=== PATIENT | female | born 1965 | race African-American/Black ===

== ENCOUNTER 2017-08-22 21:55 | Emergency (ER) | payer MEDICAID, OTHER ==
[~2017-08-22] VITALS: Ht 165.1 cm; Wt 104.3 kg
[2017-08-22 22:52] LABS: Urine Bacteria FEW /hpf (None Seen); Urine Blood Negative /uL (Negative); Urine Hyaline Cast FEW /lpf (0 - 2); Urine Mucus FEW (None Seen); Urine Specific Gravity 1.006 (1.001-1.035); Urine WBC 16 /hpf (0 - 5)
[2017-08-22 23:01] LABS: Basophils # (auto) 0 uL; Basophils % (auto) 0.5 % (0.0-2.0); Hematocrit 42.7 % (36.0-46.0); Mean Corpuscular Hemoglobin 25.4 pg (28.0-32.0); Monocytes # (auto) 0.5 uL; Nucleated Red Blood Cells % 0.1 %
[2017-08-22 23:03] LABS: Eosinophils # (auto) 0 uL; Eosinophils % (auto) 0.7 % (0.0-7.0); Hemoglobin 13.7 g/dL (12.2-16.2); Lymphocytes # (auto) 1.7 uL; Lymphocytes % (auto) 24.4 % (10.0-50.0); Mean Corpuscular Hgb Conc. 32.1 g/dL (32.0-36.0); Monocytes % (auto) 6.6 % (0.0-12.0); Neutrophils # (auto) 4.7 uL; Neutrophils % (auto) 67.8 % (37.0-80.0); Platelet Count (auto) 208 10^3/uL (140-450); Red Cell Distribution Width 15.5 % (11.8-14.3); White Blood Cell 6.9 10^3/uL (4.4-10.8)
[2017-08-22 23:12] LABS: Albumin 3.6 g/dL (3.4-5.0); BUN/Creatinine Ratio 8.2; Magnesium 2.2 mg/dL (1.6-2.6); Potassium 3.6 mmol/L (3.5-5.1)
[2017-08-22 23:15] LABS: Bilirubin, Total 0.8 mg/dL (0.2-1.0); Total Protein 8.4 g/dL (6.4-8.2)
[2017-08-23] MEDS ORDERED: ASPirin 81 mg TAB PO ONE (01:45)
[2017-08-23] MEDS ORDERED: HYDROcodone-ACET 5/325MG TAB PO ONE (01:45)
[2017-08-23] MEDS ORDERED: ASPirin 81 mg TAB ONE (02:08)
[2017-08-23 02:59] VITALS: BP 116/89
== END 2017-08-23 03:01 | disposition home or self-care (01) ==
LOC: ER 21:57
DX: R07.89 Other chest pain (principal); N39.0 Urinary tract infection, site not specified; J45.909 Unspecified asthma, uncomplicated; E11.9 Type 2 diabetes mellitus without complications; Z88.1 Allergy status to other antibiotic agents
CPT/HCPCS: 36415; 71045; 80053; 81001; 83735; 83880; 84484; 85025; 93005

== ENCOUNTER 2017-08-23 08:12 | Observation (INO) | payer MEDICAID ==
[~2017-08-23] VITALS: Ht 165.1 cm; Wt 104.3 kg
[2017-08-23 09:27] LABS: Basophils # (auto) 0.1 uL; Eosinophils # (auto) 0.1 uL; Hematocrit 40.5 % (36.0-46.0); Lymphocytes # (auto) 1.2 uL; Monocytes # (auto) 0.5 uL; Nucleated Red Blood Cells % 0.1 %; White Blood Cell 6.6 10^3/uL (4.4-10.8)
[2017-08-23 09:29] LABS: Basophils % (auto) 0.8 % (0.0-2.0); Eosinophils % (auto) 1.3 % (0.0-7.0); Hemoglobin 13.2 g/dL (12.2-16.2); Lymphocytes % (auto) 18.1 % (10.0-50.0); Mean Corpuscular Hemoglobin 25.6 pg (28.0-32.0); Mean Corpuscular Hgb Conc. 32.5 g/dL (32.0-36.0); Mean Corpuscular Volume 78.8 fL (80.0-100.0); Monocytes % (auto) 7.3 % (0.0-12.0); Neutrophils # (auto) 4.8 uL; Neutrophils % (auto) 72.5 % (37.0-80.0); Platelet Count (auto) 201 10^3/uL (140-450); Red Blood Cells 5.14 10^6/uL (4.0-5.20); Red Cell Distribution Width 15.2 % (11.8-14.3)
[2017-08-23 09:38] LABS: Albumin 3.6 g/dL (3.4-5.0); BUN/Creatinine Ratio 6.9; Calcium 8.8 mg/dL (8.5-10.1); Potassium 3.4 mmol/L (3.5-5.1)
[2017-08-23 09:57] LABS: Total Protein 8.2 g/dL (6.4-8.2)
[2017-08-23 12:37] LABS: Bilirubin, Total 0.8 mg/dL (0.2-1.0)
[2017-08-23 18:34] LABS: Urine Bacteria FEW /hpf (None Seen); Urine Blood Negative /uL (Negative); Urine Specific Gravity 1.005 (1.001-1.035); Urine WBC 3 /hpf (0 - 5)
[2017-08-23] MEDS ORDERED: SODIUM CHLORIDE 0.9% 1,000 ML IVB ONE (20:09)
[2017-08-23] MEDS ORDERED: cefTRIAXone 1GM/10ml IVPUSH 10 ML IV ONE (20:15)
[2017-08-23 23:30] VITALS: BP 114/64
== END 2017-08-23 22:41 | disposition home or self-care (01) | DRG 463 ==
LOC: ER 08:12 → OVERFLOW 17:22 → ER 22:41
PROVIDERS: ADMIT Family Medicine; ATTEND Family Medicine
DX: N39.0 Urinary tract infection, site not specified (principal); E11.9 Type 2 diabetes mellitus without complications; R10.9 Unspecified abdominal pain; E86.0 Dehydration; Z90.710 Acquired absence of both cervix and uterus
CPT/HCPCS: 36415; 74176; 80053; 81001; 82150; 82962; 83690; 85025; 96361; 96374; 99285; G0378; J7030

== ENCOUNTER 2017-10-26 23:43 | Emergency (ER) | payer MEDICAID ==
[~2017-10-26] VITALS: Ht 162.6 cm; Wt 99.8 kg
[2017-10-26 23:57] VITALS: BP 160/100
[2017-10-27] MEDS ORDERED: PHENAZOPYRIDINE HCL 100 MG TAB PO ONE (08:30)
[2017-10-27] MEDS ORDERED: IBUPROFEN 800 MG TAB PO ONE (08:30)
== END 2017-10-27 09:02 | disposition home or self-care (01) ==
LOC: EDBD 23:43 → ER 23:43
DX: S83.8X2A Sprain of other specified parts of left knee, initial encounter (principal); M17.12 Unilateral primary osteoarthritis, left knee; Z88.1 Allergy status to other antibiotic agents; I10 Essential (primary) hypertension; E07.89 Other specified disorders of thyroid; E11.9 Type 2 diabetes mellitus without complications; X58.XXXA Exposure to other specified factors, initial encounter; Y93.89 Activity, other specified; Y92.89 Other specified places as the place of occurrence of the external cause; Y99.8 Other external cause status
CPT/HCPCS: 73562; 81002

== ENCOUNTER 2017-10-27 15:34 | Emergency (ER) | payer MEDICAID ==
[~2017-10-27] VITALS: Ht 165.1 cm; Wt 104.3 kg
[2017-10-27 15:42] VITALS: BP 129/88
== END 2017-10-28 00:49 | disposition home or self-care (01) ==
LOC: EDBD 15:34 → ER 15:34
DX: N39.0 Urinary tract infection, site not specified (principal); I10 Essential (primary) hypertension; E11.9 Type 2 diabetes mellitus without complications; Z88.0 Allergy status to penicillin; Z90.710 Acquired absence of both cervix and uterus; Z59.0 Homelessness; Z76.5 Malingerer [conscious simulation]